=== PATIENT | female | born 1985 | race Caucasian/White ===

== ENCOUNTER 2018-02-14 12:59 | Inpatient (IN) | payer SELFPAY ==
[~2018-02-14] VITALS: Ht 157.5 cm; Wt 68.0 kg
[2018-02-14 13:05] VITALS: BP 154/79
--- NOTE | 2018-02-14 13:10 | NUR ---
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 PT DENIES DIARRHEA, CONSTIPATION, OR URINARY COMPLAINTS. ER MD MADE AWARE OF PT STATUS.
[2018-02-14] MEDS ORDERED: NACL 0.9% 500 ML IV ONE (13:23)
[2018-02-14] MEDS ORDERED: KETOROLAC 30 MG/ML VIAL IVP ONE (13:25)
[2018-02-14] MEDS ORDERED: ONDANSETRON 4 MG/2 ML VIAL IVP ONE (13:25)
--- NOTE | 2018-02-14 13:46 | NUR ---
US completed at bedside by tech.
[2018-02-14 13:54] LABS: BASOPHILS # (AUTO) 0.1 K/uL (0.00-0.22); BASOPHILS % (AUTO) 0.7 % (0.0-2.0); EOSINOPHILS % (AUTO) 0.3 % (0.0-4.0); HEMATOCRIT 38.9 % (36-48); LYMPHOCYTES # (AUTO) 1.3 K/uL (2.5-16.5); LYMPHOCYTES % (AUTO) 12.2 % (20.5-51.1); MEAN CORPUSCULAR HEMOGLOBIN 30 pg (27-31); MEAN CORPUSCULAR HGB CONC 33 g/dL (33-37); MEAN CORPUSCULAR VOLUME 90.5 fL (80-94); MONOCYTES # (AUTO) 0.6 K/uL (0.8-1.0); MONOCYTES % (AUTO) 5.5 % (1.7-9.3); NEUTROPHILS # (AUTO) 8.6 K/uL (1.8-7.7); NEUTROPHILS % (AUTO) 81.3 % (42.2-75.2); PLATELET COUNT (AUTO) 226 K/uL (140-450); RED BLOOD CELL COUNT(AUTO) 4.29 MIL/uL (4.20-5.40); RED CELL DISTRIBUTION WIDTH 12.9 % (11.6-13.7); WHITE BLOOD COUNT (AUTO) 10.6 K/uL (4.8-10.8)
[2018-02-14 14:17] LABS: CARBON DIOXIDE 25.7 mmol/L (21-32); CREATININE 0.8 mg/dL (0.6-1.3); POTASSIUM 3.7 mmol/L (3.5-5.1)
[2018-02-14 14:22] LABS: ALBUMIN 4.2 g/dL (3.4-5.0); TOTAL BILIRUBIN 0.4 mg/dL (0.0-1.0)
[2018-02-14] MEDS ORDERED: ONDANSETRON 4 MG/2 ML VIAL IM/IVP PRN (15:20)
[2018-02-14] MEDS ORDERED: MORPHINE SULFATE 4 MG/ML SYR IVP PRN (15:20)
[2018-02-14] MEDS ORDERED: DOCUSATE SODIUM 100 MG GELCAP PO PRN (15:20)
--- NOTE | 2018-02-14 15:29 | NUR ---
X RAY AT BEDSIDE.
--- NOTE | 2018-02-14 15:42 | NUR ---
Patient will be admitted to care of DR. COH. Admited to TELE FLOOR. Will go to room 125 B. Belongings list completed. Report to SHORTY GORDON.
[2018-02-14 16:06] LABS: PROTHROMBIN TIME 11.1 secs (10.8-13.4)
[2018-02-14 16:10] VITALS: BP 105/59
--- NOTE | 2018-02-14 16:10 | NUR ---
RECEIVED PT REPORT FROM MARYANN ER NURSE. PT IS DONATO BROOKS. DX OF CHOLECYSTITIS. CC:EPIGASTRIC PAIN STARTED THIS MORNING. VOMITING X1 THIS MORNING. RECEIVED TORADOL IN ER. PAIN IS 3/10, TOLERABLE AT THIS TIME. PLACE PT ON TELE, MRSA SWAB DONE. VITALS TAKEN. IV NOTED TO LEFT WRIST, 20G, ASYMPTOMATIC. ORIENTED PT TO ROOM, DISCUSSED PLAN OF CARE, PT VERBALIZED UNDERSTANDING. BED IN LOWEST POSITION, CALL LIGHT WITHIN REACH, WILL CONTINUE TO MONITOR.
[2018-02-14 16:12] LABS: APPEARANCE,URINE CLEAR (CLEAR); BILIRUBIN,URINE NEGATIVE (NEGATIVE); BLOOD, URINE NEGATIVE (NEGATIVE); COLOR,URINE YELLOW (YELLOW); LEUKOCYTE ESTERASE ,URINE NEGATIVE (NEGATIVE); NITRITE, URINE NEGATIVE (NEGATIVE); UGLUCOSE NEGATIVE (NEGATIVE)
[2018-02-14 16:22] LABS: CHOL/HDL RATIO 3.7 (1-4.5); FREE T4 (FREE THYROXINE) 0.95 ng/dL (0.76-1.46); MAGNESIUM 1.8 mg/dL (1.8-2.4); THYROID STIMULATING HORMONE 1.48 uIU/mL (0.34-3.74)
[2018-02-14 16:24] LABS: BARBITURATE, URINE NEG. ng/ml (NEG <=200); BENZODIAZEPINE, URINE NEG. ng/mL (NEG <=200); CANNABINOID, URINE NEG. ng/mL (NEG <=50); COCAINE, URINE NEG. ng/mL (NEG <=300); OPIATE, URINE NEG. ng/mL (NEG <=2000); PHENCYCLIDINE SCREEN,URINE NEG. ng/mL (NEG <=25)
[2018-02-14] MEDS: NACL 0.9% 1,000 ML IV SCH (17:00)
--- NOTE | 2018-02-14 17:50 | NUR ---
DR LEONE CALLED, ASKED ABOUT THE PT, ORDERED TYPE AND SCREEN, OBTAIN CONSENT, LOW FAT DIET. MADE DR ALLEN AWARE.
--- NOTE | 2018-02-14 18:00 | NUR ---
ADMISSION HX AND SX CONSENT COMPLETED WITH PT WITH MEDICAL MANAGEMENT SPECIALIST PHONE, MEDICAL MANAGEMENT SPECIALIST [phone]. PT SIGNED CONSENT FOR SX WHICH WILL BE ON FRIDAY.
[2018-02-14] MEDS: KETOROLAC 15 MG/ML VIAL IVP PRN (18:26)
--- NOTE | 2018-02-14 19:30 | NUR ---
Patient's Plan of Care was discussed and reviewed with BURNT LIME DRAWER: MARYANN PILLAI
--- NOTE | 2018-02-14 19:30 | NUR ---
ENDORSED PT TO CALIBRATION SPECIALIST NURSE, PT IN STABLE CONDITION.
--- NOTE | 2018-02-14 19:31 | NUR ---
RECD. RESTING IN BED, AWAKE, A/OX4. RESPIRATION EVEN AND UNLABORED. IV OF NS AT 60 ML/HR INFUSING, LEFT WRIST G20. AMBULATING INDEPENDENTLY. PAIN IN THE ABDOMEN, 11/29, WAS MEDICATED BY AM NURSE, PAIN DECREASING. VERBALIZED HAS NO PROBLEM WITH BM, AND SLEEP. PLAN OF CARE FOR THE SHIFT DISCUSSED. VERBALIZED UNDERSTANDING. AT THE BEDSIDE.
[2018-02-14 20:00] VITALS: BP 105/64
[2018-02-14] MEDS: HYDROcodone/APAP 7.5/325 MG 1 TAB PO PRN (20:52)
[2018-02-15] VITALS: BP 101/59
--- NOTE | 2018-02-15 | NUR ---
SLEEPING COMFORTABLY IN BED, DENIES PAIN 0/10.
[2018-02-15 04:00] VITALS: BP 100/66
--- NOTE | 2018-02-15 04:00 | NUR ---
INQUIRED IF SHE NEEDS PAIN MEDICATION, REFUSED.
--- NOTE | 2018-02-15 06:45 | NUR ---
CONDITION REMAIN STABLE. REQUESTED ONLY ONCE FOR PAIN MEDICATION. ABLE TO SLEEP WELL. WILL ENDORSE TO AM NURSE FOR CONTINUITY OF CARE.
--- NOTE | 2018-02-15 07:25 | NUR ---
ENDORSED TO AM NURSE FOR CONTINUITY OF CARE.
[2018-02-15] MEDS: NACL 0.9% 1,000 ML IV SCH (07:56)
[2018-02-15 08:00] VITALS: BP 117/64
--- NOTE | 2018-02-15 08:00 | NUR ---
INITIAL ASSESSMENT PERFORMED. PATIENT ALERT AND ABLE TO MAKE NEEDS KNOWN. NO ACUTE DISTRESS NOTED. LUNG SOUNDS CLEAR. BOWEL SOUNDS ACTIVE. LBM YESTERDAY PER PATIENT. FC PATENT AND INTACT.BLE WITH +1 EDEMA. PT WEARS ADULT BRIEFS. SKIN INTACT.IV SITE TO RIGHT THUMB 22G SL. PATIENT ON 1500CC/24HR FLUID RESTRICTION . PATIENT ON CCHO DIET. TOLERATING WELL. PATIENT WITH LEFT ARM SHUNT THAT IS NOT FUNCTIONAL. PATIENT PLAN OF CARE DISCUSSED WITH PATIENT . PATIENT VERBALIZED UNDERSTANDING AND AGREEMENT. ORIENTED PATIENT TO ROOM. CALL LIGHT WITHIN REACH. WILL CONT TO MONITOR.
[2018-02-15] MEDS: KETOROLAC 15 MG/ML VIAL IVP PRN (09:05)
[2018-02-15 09:33] LABS: BASOPHILS % (AUTO) 0.6 % (0.0-2.0); EOSINOPHILS # (AUTO) 0.1 K/uL (0-0.4); EOSINOPHILS % (AUTO) 1.5 % (0.0-4.0); HEMATOCRIT 37.9 % (36-48); HEMOGLOBIN 12.6 g/dL (12.0-16.0); LYMPHOCYTES # (AUTO) 1.6 K/uL (2.5-16.5); LYMPHOCYTES % (AUTO) 18.7 % (20.5-51.1); MEAN CORPUSCULAR HEMOGLOBIN 31 pg (27-31); MEAN CORPUSCULAR HGB CONC 33 g/dL (33-37); MEAN CORPUSCULAR VOLUME 91.4 fL (80-94); MONOCYTES # (AUTO) 0.7 K/uL (0.8-1.0); MONOCYTES % (AUTO) 8.4 % (1.7-9.3); NEUTROPHILS # (AUTO) 6.1 K/uL (1.8-7.7); NEUTROPHILS % (AUTO) 70.8 % (42.2-75.2); PLATELET COUNT (AUTO) 197 K/uL (140-450); RED BLOOD CELL COUNT(AUTO) 4.14 MIL/uL (4.20-5.40); RED CELL DISTRIBUTION WIDTH 12.9 % (11.6-13.7); WHITE BLOOD COUNT (AUTO) 8.5 K/uL (4.8-10.8)
[2018-02-15 09:56] LABS: ANION GAP 10.5 (8-16); CARBON DIOXIDE 28.4 mmol/L (21-32); CREATININE 0.8 mg/dL (0.6-1.3); POTASSIUM 3.9 mmol/L (3.5-5.1)
[2018-02-15 09:59] LABS: MAGNESIUM 1.8 mg/dL (1.8-2.4); PHOSPHORUS 3.1 mg/dL (2.5-4.9)
--- NOTE | 2018-02-15 10:30 | NUR ---
PATIENT IN BED RESTING WITH EYES CLOSED. EASILY WOKEN. NO ACUTE DISTRESS NOTED. RESP EVEN AND UNLABORED. FAMILY AT BEDSIDE. PATIENT EDUCATION REGARDING DIET ORDERS. WILL CONT TO MONITOR.
[2018-02-15 12:00] VITALS: BP 124/64
--- NOTE | 2018-02-15 13:00 | NUR ---
PATIENT IN BED ASLEEP. NO ACUTE DISTRESS NOTED. DENIES PAIN AT THIS TIME. FAMILY AT BEDSIDE.CALL LIGHT WITHIN REACH. WILL CONT TO MONITOR.
--- NOTE | 2018-02-15 15:30 | NUR ---
PATIENT IN BED RESTING WITH EYES CLOSED. NO ACUTE DISTRESS NOTED. RESP EVEN AND UNLABORED. CALL LIGHT WITHIN REACH. WILL CONT TO MONITOR.
[2018-02-15 16:00] VITALS: BP 107/55
--- NOTE | 2018-02-15 16:06 | NUR ---
DR. ALLEN REQUESTED ECHO TO BE CANCELLED
--- NOTE | 2018-02-15 17:27 | NUR ---
PATIENT IN BED WITH EYES CLOSED. EASILY WOKEN. NO ACUTE DISTRESS NOTED. DENIES PAIN. AWAITING DINNER TO BE SERVED. WILL CONT TO MONITOR.
--- NOTE | 2018-02-15 19:10 | NUR ---
ENDORSED REPORT TO SUPERVISOR DRYING NURSE AT BEDSIDE FOR CONTINUITY OF CARE. PATIENT STABLE.
--- NOTE | 2018-02-15 19:11 | NUR ---
PATIENT REPORT RECEIVED FROM MORNING NURSE AT BEDSIDE. PATIENT IS AWAKE, ALERT AND ORIENTED. VIETNAMESE SPEAKING. NO SIGNS AND SYMPTOMS OF DISTRESS NOTED. PATIENT IS ON ROOM AIR. PATIENT COMPLAINS OF MILD HEADACHE. WILL MEDICATE ORDERED. PLAN OF CARE DISCUSSED WITH PATIENT. PATIENT VERBALIZED UNDERSTANDING. BED IN LOWEST POSITION, SIDE RAILS UP AND CALL LIGHT WITHIN REACH. WILL CONTINUE TO MONITOR.
[2018-02-15] MEDS: ACETAMINOPHEN 325 MG TAB PO PRN (19:38)
[2018-02-15 20:00] VITALS: BP 99/66
--- NOTE | 2018-02-15 22:00 | NUR ---
CHECKED ON PATIENT. PATIENT IS ASLEEP. NO SIGNS AND SYMPTOMS OF DISTRESS NOTED. BREATHING EVEN AND UNLABORED. WILL CONTINUE TO MONITOR.
--- NOTE | 2018-02-16 | NUR ---
CHECKED ON PATIENT. PATIENT IS ASLEEP. NO SIGNS AND SYMPTOMS OF DISTRESS NOTED. BREATHING EVEN AND UNLABORED. WILL CONTINUE TO MONITOR.
[2018-02-16] MEDS: NACL 0.9% 1,000 ML IV SCH (00:55)
--- NOTE | 2018-02-16 03:30 | NUR ---
CHECKED ON PATIENT. PATIENT IS ASLEEP. NO SIGNS AND SYMPTOMS OF DISTRESS NOTED. BREATHING EVEN AND UNLABORED. WILL CONTINUE TO MONITOR.
[2018-02-16 04:00] VITALS: BP 93/53
[2018-02-16 06:15] LABS: BASOPHILS # (AUTO) 0.1 K/uL (0.00-0.22); BASOPHILS % (AUTO) 0.8 % (0.0-2.0); EOSINOPHILS # (AUTO) 0.3 K/uL (0-0.4); EOSINOPHILS % (AUTO) 4.7 % (0.0-4.0); HEMATOCRIT 37.5 % (36-48); HEMOGLOBIN 12.6 g/dL (12.0-16.0); LYMPHOCYTES # (AUTO) 2.1 K/uL (2.5-16.5); LYMPHOCYTES % (AUTO) 30.4 % (20.5-51.1); MEAN CORPUSCULAR HEMOGLOBIN 31 pg (27-31); MEAN CORPUSCULAR HGB CONC 34 g/dL (33-37); MEAN CORPUSCULAR VOLUME 90.8 fL (80-94); MONOCYTES # (AUTO) 0.5 K/uL (0.8-1.0); MONOCYTES % (AUTO) 7.6 % (1.7-9.3); NEUTROPHILS # (AUTO) 3.9 K/uL (1.8-7.7); NEUTROPHILS % (AUTO) 56.5 % (42.2-75.2); PLATELET COUNT (AUTO) 194 K/uL (140-450); RED BLOOD CELL COUNT(AUTO) 4.13 MIL/uL (4.20-5.40); RED CELL DISTRIBUTION WIDTH 12.7 % (11.6-13.7); WHITE BLOOD COUNT (AUTO) 6.8 K/uL (4.8-10.8)
--- NOTE | 2018-02-16 07:13 | NUR ---
PATIENT REPORT GIVEN TO MORNING NURSE AT BEDSIDE FOR CONTINUITY OF CARE. PATIENT IS IN STABLE CONDITION
--- NOTE | 2018-02-16 07:14 | NUR ---
RECEIVED REPORT FROM BOBBIN PAINTER NURSE MENG AT BEDSIDE FOR CONTINUITY OF CARE. PT IS AWAKE AND ORIENTED X 4. INTRODUCED SELF AND UPDATED BOARD. PT NPO STATUS NOW. IV TO L WRIST 20G INTACT WITH NS @60ML/HR. SKIN INTACT. WARM AND DRY. PT ON RA. NO SOB. NO SIGNS OF DISTRESS. AWARE OF PROCEDURE TODAY. BED IN LOW POSITION, WHEELS LOCKED. CALL LIGHT WITHIN REACH. WILL CONTINUE TO MONITOR.
[2018-02-16 07:38] LABS: ANION GAP 12.2 (8-16); CARBON DIOXIDE 27.8 mmol/L (21-32)
[2018-02-16 07:39] LABS: CREATININE 0.7 mg/dL (0.6-1.3)
[2018-02-16 07:40] LABS: MAGNESIUM 2.1 mg/dL (1.8-2.4)
[2018-02-16 08:00] VITALS: BP 109/71
--- NOTE | 2018-02-16 08:45 | NUR ---
PT LEFT FOR OR PROCEDURE. LEFT UNIT IN STABLE CONDITION ACCOMPANIED BY RN.
[2018-02-16] MEDS ORDERED: BUPIVACAINE-MPF 0.25% 30 ML VIAL INJ ONE (08:49)
[2018-02-16] MEDS ORDERED: fentaNYL 0.05 MG/ML VIAL ONE (08:57)
[2018-02-16] MEDS ORDERED: MEPERIDINE 50 MG/ML SYR ONE (08:57)
[2018-02-16] MEDS ORDERED: MIDAZOLAM 2 MG/2 ML VIAL ONE (08:57)
[2018-02-16] MEDS ORDERED: SEVOFLURANE 250 ML BTL INH ONE (09:45)
[2018-02-16] MEDS ORDERED: GLYCOPYRROLATE 0.2 MG/ML VIAL ONE (09:45)
[2018-02-16] MEDS ORDERED: NEOSTIGMINE 1:1000 10 MG/10 ML VIAL ONE (09:45)
[2018-02-16] MEDS ORDERED: ONDANSETRON 4 MG/2 ML VIAL ONE (09:45)
[2018-02-16] MEDS ORDERED: SUCCINYLCHOLINE CHLORIDE 200 MG/10 ML VIAL IVP ONE (09:45)
[2018-02-16] MEDS ORDERED: ROCURONIUM 50 MG/5 ML VIAL IV ONE (09:45)
[2018-02-16] MEDS ORDERED: PROPOFOL 200 MG/20 ML VIAL IV ONE (09:45)
[2018-02-16] MEDS ORDERED: DEXAMETHASONE 4 MG/ML VIAL ONE (09:45)
[2018-02-16] MEDS ORDERED: LEVOFLOXACIN 500 MG/D5W PREMIX 100 ML IV ONE (10:03)
[2018-02-16] MEDS ORDERED: LACTATED RINGERS 1,000 ML IV SCH (10:49)
[2018-02-16] MEDS ORDERED: MEPERIDINE 25 MG/ML SYR IVP PRN (10:50)
[2018-02-16] MEDS ORDERED: diphenhydrAMINE 50 MG/ML VIAL IVP PRN (10:50)
[2018-02-16] MEDS ORDERED: ONDANSETRON 4 MG/2 ML VIAL IVP PRN (10:50)
[2018-02-16] MEDS ORDERED: THROMBIN KIT 20 MU VIAL TP ONE (11:08)
--- NOTE | 2018-02-16 11:31 | NUR ---
PATIENT HAS BEEN SCREENED AND CATEGORIZED MODERATE NUTRITION RISK. PATIENT WILL BE SEEN WITHIN 3-5 DAYS OF ADMISSION. 02/17/18 02/19/[address]
--- NOTE | 2018-02-16 12:15 | NUR ---
PT CAME FROM OR . RECEIVED REPORT FROM OR NURSE AT BEDSIDE. VITAL SIGNS NOTED.BP 116/63, O2 98%, HR 86, RR 16. PT IN STABLE CONDITION. NO DISTRESS NOTED. WILL CONTINUE TO MONITOR.
--- NOTE | 2018-02-16 13:20 | NUR ---
PT UNABLE TO DO IS AT THIS TIME. IS LEFT AT BEDSIDE
[2018-02-16] MEDS: MORPHINE SULFATE 4 MG/ML SYR IVP PRN ×2 (14:14→20:08)
[2018-02-16] MEDS: DEXT 5% / NACL 0.45% 1,000 ML IV SCH ×2 (14:14→21:35)
--- NOTE | 2018-02-16 14:27 | NUR ---
CM NOTE CHART REVIEW DONE
[2018-02-16 16:00] VITALS: BP 108/70
--- NOTE | 2018-02-16 17:05 | NUR ---
PT UNABLE TO ATTEMPT IS AT THIS TIME. IS AVAILABLE AT BEDSIDE.
--- NOTE | 2018-02-16 19:30 | NUR ---
ENDORSED PT TO CARTOONIST SPECIAL EFFECTS NURSE SANTOSH AT BEDSIDE FOR CONTINUITY OF CARE. PT IN STABLE CONDITION.
--- NOTE | 2018-02-16 19:31 | NUR ---
RECEIVED PT ON BED, COMPLAINING OF ABDOMINAL PAIN, MADE AWARE OF NEXT DUE TIME FOR MORPHINE, VERBALIZED UNDERSTANDING, REPOSITION FOR COMFORT, WITH ABDOMINAL INCISION X3 COVERED BY DERMABAND, NO BLEEDING NOTED, TOLERATING CLEAR LIQUID DIET, IVF INFUSING WELL, SAFETY MEASURES IN PLACE, CALL LIGHT WITHIN REACH, AT BEDSIDE.
--- NOTE | 2018-02-16 19:57 | NUR ---
1939 PATIENT UNABLE TO DO INCENTIVE SPIROMETER AT THIS TIME. PT IN TO MUCH PAIN.
--- NOTE | 2018-02-16 21:25 | NUR ---
PT AMBULATED TO BR WITH ASSIST AND VOIDED FREELY, MONITORED CLOSELY.
[2018-02-17] VITALS: BP 106/69
[2018-02-17] MEDS: HYDROcodone/APAP 7.5/325 MG 1 TAB PO PRN ×2 (01:09→18:25)
--- NOTE | 2018-02-17 01:10 | NUR ---
PT AMBULATED TO BR WITH ASSIST, VOIDED FREELY, MEDICATED FOR ABDOMINAL PAIN WITH NORCO, MONITORED CLOSELY.
[2018-02-17] MEDS: DEXT 5% / NACL 0.45% 1,000 ML IV SCH ×3 (01:11→21:38)
[2018-02-17] MEDS: MORPHINE SULFATE 4 MG/ML SYR IVP PRN (03:36)
[2018-02-17 05:51] LABS: BASOPHILS % (AUTO) 0.1 % (0.0-2.0); HEMATOCRIT 37.8 % (36-48); HEMOGLOBIN 12.4 g/dL (12.0-16.0); LYMPHOCYTES # (AUTO) 1.3 K/uL (2.5-16.5); LYMPHOCYTES % (AUTO) 8.3 % (20.5-51.1); MEAN CORPUSCULAR HEMOGLOBIN 30 pg (27-31); MEAN CORPUSCULAR HGB CONC 33 g/dL (33-37); MEAN CORPUSCULAR VOLUME 90.2 fL (80-94); MONOCYTES # (AUTO) 1.1 K/uL (0.8-1.0); NEUTROPHILS % (AUTO) 84.6 % (42.2-75.2); PLATELET COUNT (AUTO) 206 K/uL (140-450); RED BLOOD CELL COUNT(AUTO) 4.19 MIL/uL (4.20-5.40); RED CELL DISTRIBUTION WIDTH 12.9 % (11.6-13.7); WHITE BLOOD COUNT (AUTO) 15.4 K/uL (4.8-10.8)
--- NOTE | 2018-02-17 05:51 | NUR ---
PT COMPLAINING OF ABDOMINAL PAIN, MORPHINE NOT DUE YET, DR GUTIERREZ MADE AWARE AND CHECKED THE PT, WITH NEW ORDER, TORADOL GIVEN IVP FOR BREAKTHROUGH PAIN, TEMP OF 100.0, OFFERED TYLENOL BUT PT WANTS JUST PAIN MEDICATION, BLANKETS REMOVED FOR NOW, MONITORED CLOSELY.
[2018-02-17] MEDS ORDERED: KETOROLAC 30 MG/ML VIAL IVP SCH (06:00)
[2018-02-17 06:08] LABS: T4 (THYROXINE) 6.5 ug/dL (4.5-12.0)
[2018-02-17 06:10] LABS: ALBUMIN 3.2 g/dL (3.4-5.0); ANION GAP 11.1 (8-16); CARBON DIOXIDE 26.9 mmol/L (21-32); CREATININE 0.8 mg/dL (0.6-1.3); TOTAL BILIRUBIN 0.5 mg/dL (0.0-1.0)
[2018-02-17 06:11] LABS: MAGNESIUM 1.7 mg/dL (1.8-2.4); PHOSPHORUS 3.5 mg/dL (2.5-4.9)
--- NOTE | 2018-02-17 06:20 | NUR ---
PT SLEEPING, EASILY AROUSABLE, ORAL TEMP OF 99.4, DENIES ANY PAIN, ENCOURAGE TO AMBULATE MORE TODAY, IVF INFUSING WELL, MONITORED CLOSELY.
--- NOTE | 2018-02-17 07:10 | NUR ---
RECEIVED PATIENT REPORT AT BEDSIDE. PATIENT AWAKE, ALERT AND ORIENTED. NO S/S OF DISTRESS. PATIENT REPORTS OF TOLERABLE PAIN AT THIS TIME. 3 ABD INCISIONS NOTED TO THE ABD. INCISIONS CLEAN, DRY AND INTACT. BED LOWERED WITH CALL LIGHT WITHIN REACH. WILL CONTINUE TO MONITOR
--- NOTE | 2018-02-17 07:15 | NUR ---
PT AWAKE, NO SIGNS OF DISTRESS, REPORT GIVEN TO EVAN BUTCHER FOR CONTINUITY OF CARE.
[2018-02-17 08:00] VITALS: BP 92/59
[2018-02-17] MEDS ORDERED: MAG SULF 2000 MG/WATER PREMIX 50 ML IV SCH (10:30)
[2018-02-17] MEDS: ACETAMINOPHEN 325 MG TAB PO PRN (11:00)
--- NOTE | 2018-02-17 13:06 | NUR ---
PT IS STILL UNABLE TO PERFORM IS AT THIS TIME WILL COME BACK TO HAVE PT TRY AGAIN
--- NOTE | 2018-02-17 14:00 | NUR ---
PATIENT ASLEEP IN BED. NO S/S OF DISTRESS NOTED
--- NOTE | 2018-02-17 15:45 | NUR ---
PATIENT AMBULATED TO THE BATHROOM TO VOID. NO S/S OF DISTRESS
[2018-02-17 16:00] VITALS: BP 112/58
--- NOTE | 2018-02-17 16:24 | NUR ---
PT IS STILL UNABLE TO PERFORM IS. I WILL ENDORSE TO FRONT END UI DEVELOPER
--- NOTE | 2018-02-17 17:13 | NUR ---
FAMILY MEMBERS PRESENT AT BEDSIDE. PATIENT AWAKE IN BED. NO S/S OF DISTRESS NOTED
--- NOTE | 2018-02-17 19:25 | NUR ---
PATIENT REPORT GIVEN AT BEDSIDE. PATIENT ENDORSED IN STABLE CONDITION
--- NOTE | 2018-02-17 19:26 | NUR ---
RECEIVED PT AWAKE ON BED, DENIES ANY PAIN, 3 ABDOMINAL INCISION COVERED WITH DERMABAND, NO BLEEDING OR ANY SIGNS OF INFECTION NOTED, PER PT NOT PASSING GAS YET, ENCOURAGE PT TO AMBULATE AT TIME, VERBALIZED UNDERSTANDING, TOLERATING CLEAR LIQUID DIET BUT FAIR APPETITE, IVF INFUSING WELL, CALL LIGHT WITHIN REACH, AT BEDSIDE.
--- NOTE | 2018-02-17 22:00 | NUR ---
PT AMBULATED TO BR WITH STEADY GAIT AND VOIDED FREELY, MONITORED CLOSELY.
--- NOTE | 2018-02-17 23:45 | NUR ---
PT SLEEPING, EASILY AROUSABLE, VITAL SIGNS STABLE, AFEBRILE, TOLERABLE PAIN AT THIS TIME, IVF INFUSING WELL, CONTINUE TO MONITOR CLOSELY.
[2018-02-18] VITALS: BP 101/67
[2018-02-18] MEDS: HYDROcodone/APAP 7.5/325 MG 1 TAB PO PRN (00:58)
--- NOTE | 2018-02-18 00:58 | NUR ---
PT COMPLAINING OF PAIN, MEDICATED PRN WITH NORCO, MONITORED CLOSELY.
[2018-02-18] MEDS: DEXT 5% / NACL 0.45% 1,000 ML IV SCH ×2 (00:59→10:45)
[2018-02-18] MEDS: KETOROLAC 30 MG/ML VIAL IVP PRN ×2 (02:07→10:36)
--- NOTE | 2018-02-18 02:50 | NUR ---
ROUNDS MADE, PT SLEEPING, NO SIGNS OF PAIN NOTED, MONITORED CLOSELY.
[2018-02-18 06:13] LABS: BASOPHILS % (AUTO) 0.2 % (0.0-2.0); EOSINOPHILS % (AUTO) 0.4 % (0.0-4.0); HEMOGLOBIN 11.4 g/dL (12.0-16.0); LYMPHOCYTES # (AUTO) 1.4 K/uL (2.5-16.5); LYMPHOCYTES % (AUTO) 13.4 % (20.5-51.1); MEAN CORPUSCULAR HEMOGLOBIN 31 pg (27-31); MEAN CORPUSCULAR HGB CONC 33 g/dL (33-37); MEAN CORPUSCULAR VOLUME 91.2 fL (80-94); MONOCYTES # (AUTO) 0.9 K/uL (0.8-1.0); NEUTROPHILS # (AUTO) 7.9 K/uL (1.8-7.7); PLATELET COUNT (AUTO) 177 K/uL (140-450); RED BLOOD CELL COUNT(AUTO) 3.73 MIL/uL (4.20-5.40); RED CELL DISTRIBUTION WIDTH 12.9 % (11.6-13.7); WHITE BLOOD COUNT (AUTO) 10.2 K/uL (4.8-10.8)
--- NOTE | 2018-02-18 06:15 | NUR ---
ROUNDS MADE, PT AWAKE, DR VOGEL AT BEDSIDE EVALUATING THE PT, NO DISTRESS NOTED, IVF INFUSING WELL, MONITORED CLOSELY.
[2018-02-18 06:32] LABS: ANION GAP 10.5 (8-16); CARBON DIOXIDE 27.7 mmol/L (21-32); CREATININE 0.8 mg/dL (0.6-1.3); POTASSIUM 4.2 mmol/L (3.5-5.1)
--- NOTE | 2018-02-18 07:30 | NUR ---
PT AWAKE TALKING ON CELLPHONE, NO SIGNS OF DISTRESS, REPORT GIVEN TO EVAN SALAZAR FOR CONTINUITY OF CARE.
--- NOTE | 2018-02-18 07:35 | NUR ---
RECEIVED PT FROM PHYTOPATHOLOGIST NURSE, PT IS AWAKE SEATED ON THE BED AND TALKING TO CP. NO SIGN OF DISTRESS NOTED.
[2018-02-18 08:00] VITALS: BP 95/62
--- NOTE | 2018-02-18 08:05 | NUR ---
PT IS AWAKE LYING ON THE BED, VITAL SIGNS TAKEN. NO SIGN OF DISTRESS NOTED. WILL MONITOR.
--- NOTE | 2018-02-18 09:00 | NUR ---
PT IS SEEN WALKING ON THE HALLWAY. NO SIGN OF DISTRESS NOTED. WILL MONITOR.
--- NOTE | 2018-02-18 10:50 | NUR ---
PT IS AWAKE, LYING ON THE BED, PAIN MEDICATION GIVEN. NO SIGN OF DISTRESS NOTED. WILL MONITOR.
--- NOTE | 2018-02-18 12:30 | NUR ---
PT IS WALKING ON THE HALLWAY, VERBALIZED THAT SHE PASSED GAS ALREADY. NO SIGN OF DISTRESS NOTED.
[2018-02-18] MEDS ORDERED: IBUP-2213 PO (15:04)
[2018-02-18 16:00] VITALS: BP 110/70
--- NOTE | 2018-02-18 16:45 | NUR ---
DISCHARGED PT VIA WHEELCHAIR ACCOMPANIED BY THE . IV LINE AND ARM BAND REMOVED AND PT IS STABLE AT THIS TIME AND NO SIGN OF DISTRESS NOTED.
== END 2018-02-18 16:45 | disposition home or self-care (01) | DRG 418 ==
LOC: MED 12:59 → MTU 15:18 → UNDOADMIN 15:18 → MMU 15:18
PROVIDERS: ADMIT Family Medicine; ATTEND Family Medicine
PROC: 0FT44ZZ Resection of Gallbladder, Percutaneous Endoscopic Approach (ICD-10-PCS; principal; 2018-02-16 08:45)
DX: K80.00 Calculus of gallbladder with acute cholecystitis without obstruction (principal); E44.0 Moderate protein-calorie malnutrition; E83.42 Hypomagnesemia; E78.5 Hyperlipidemia, unspecified; I10 Essential (primary) hypertension; Z68.27 Body mass index [BMI] 27.0-27.9, adult
CPT/HCPCS: 36415; 71045; 76705; 80048; 80053; 80305; 81003; 81025; 82150; 83036; 83690; 83735; 83880; 84100; 84436; 84439; 84443; 84479; 85025; 85610; 85730; 86886; 86900; 86901; 87081; 93005; 96361; 96374; 96375; 99285; C1887; J0330; J1100; J1885; J1956; J2175; J2250; J2270; J2405; J2704; J2710; J3010; J3475; J3490; J7030; Q0092